=== PATIENT | male | born 1955 | race Caucasian/White ===

== ENCOUNTER 2017-05-12 16:06 | Observation (INO) | payer SELFPAY ==
--- NOTE | 2017-05-12 17:13 | C.PDOC ---
History Of Present Illness <Rachael Peralta - Last Filed: 05/12/17 17:21> <Ti Motne Cameron - Last Filed: 05/13/17 17:35> 61 Y/O MALE BROUGHT TO ED BY SON WHO REPORTS PT HAS BEEN FEELING BLOATED AND GASSY FOR 3-4 DAYS. 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 NOTES PAST HISTORY OF SMALL INTESTINE CARCINOMA. DENIES FEVER, VOMITING, WEIGHT LOSS, BLOODY STOOL, OR OTHER ASSOCIATED SX. (Rachael Peralta) History Per: Patient History/Exam Limitations: no limitations Onset/Duration Of Symptoms: Days Current Symptoms Are (Timing): Still Present Location Of Pain/Discomfort: Diffuse Radiation Of Pain To:: None Quality Of Discomfort: "Pain", Gas Associated Symptoms: Constipation. denies: Fever, Chills, Nausea, Vomiting, Diarrhea, Urinary Symptoms Last Bowel Movement: Today Recent travel outside of the [place]: No <Rachael Peralta - Last Filed: 05/12/17 17:21> <MonteTi Barnes - Last Filed: 05/13/17 17:35> Time Seen by Provider: 05/12/17 16:51 Chief Complaint (Nursing): GI Problem Past Medical History Reviewed: Historical Data, Nursing Documentation, Vital Signs - Medical History PMH: Gastritis Family History: States: Unknown Family Hx - Social History Hx Alcohol Use: No Hx Substance Use: No <Rachael Peralta - Last Filed: 05/12/17 17:21> Review Of Systems Except As Marked, All Systems Reviewed And Found Negative. Constitutional: Negative for: Fever, Chills Cardiovascular: Negative for: Chest Pain Respiratory: Negative for: Cough, Shortness of Breath, Wheezing Gastrointestinal: Positive for: Abdominal Pain, Constipation. Negative for: Nausea, Vomiting, Diarrhea, Hematochezia, Rectal Pain Skin: Negative for: Rash Neurological: Negative for: Headache, Dizziness <Rachael Peralta - Last Filed: 05/12/17 17:21> Physical Exam - Physical Exam Appears: Non-toxic, No Acute Distress Skin: Warm, Dry Head: Atraumatic, Normacephalic Oral Mucosa: Moist Chest: Symmetrical, No Tenderness Cardiovascular: Rhythm Regular, No Murmur Respiratory: Normal Breath Sounds, No Rales, No Rhonchi, No Wheezing Gastrointestinal/Abdominal: Soft, No Tenderness, No Distention, No Guarding, No Rebound Rectal: Other (NO HEMORRHOIDS, NO STOOL IN VAULT ) Back: Normal Inspection, No CVA Tenderness Extremity: Normal ROM, Capillary Refill (< 2 sec.) Neurological/Psych: Oriented x3, Normal Speech, Normal Cognition <Rachael Peralta - Last Filed: 05/12/17 17:21> ED Course And Treatment O2 Sat by Pulse Oximetry: 98 (RA) Pulse Ox Interpretation: Normal <Rachael Peralta - Last Filed: 05/12/17 17:21> - Laboratory Results Result Diagrams: 05/12/17 17:28 05/12/17 17:28 Progress Note: On reevaluation, patient is asymptomatic, abdomen is soft and nontender. Patient notes having some constipation but is stable enough to be discharged home. <Ti Monte - Last Filed: 05/13/17 17:35> Progress - Data Reviewed Data Reviewed: Lab, Diagnostic imaging <Rachael Peralta - Last Filed: 05/12/17 17:21> <Ti Monte - Last Filed: 05/13/17 17:35> - Re-Evaluation Re-evaluation Note: 05/12/17 17:24 CT Abdomen/Pelvis, Labs, IVFs ordered. (Rachael Peralta) ED OBSERVATION Date of observation admission: 05/12/17 Time of observation admission: 16:15 <Rachael Peralta - Last Filed: 05/12/17 17:21> <Ti Monte - Last Filed: 05/13/17 17:35> - Observation admission statement Patient is being placed in observation because:: abd pain, constipation (Rachael Peralta) - Goals of Observation Goals of observation are:: RO OBSTRUCT (Rachael Peralta) Disposition <Rachael Peralta - Last Filed: 05/12/17 17:21> Counseled Patient/Family Regarding: Diagnosis - Disposition Disposition Time: 20:36 - POA Present On Arrival: None <Ti Monte - Last Filed: 05/13/17 17:35> - Disposition Disposition: HOME/ ROUTINE Condition: STABLE - Clinical Impression Clinical Impression: Constipation by delayed colonic transit - Scribe Statement The provider has reviewed the documentation as recorded by the Scribe <FabianRachael - Last Filed: 05/12/17 17:21> <Ti Monte - Last Filed: 08/15/17 17:35> - Scribe Statement SM All medical record entries made by the Scribe were at my direction and personally dictated by me. I have reviewed the chart and agree that the record accurately reflects my personal performance of the history, physical exam, medical decision making, and the department course for this patient. I have also personally directed, reviewed, and agree with the discharge instructions and disposition. (Rachael Peralta)
[2017-05-12] MEDS ORDERED: Iohexol 240 (50 ml) PO STA (17:14)
[2017-05-12] MEDS ORDERED: Sodium Chloride 0.9% 1,000 ML IV ONE (17:14)
[2017-05-12] MEDS ORDERED: Iohexol 240 (50 ml) ONE (17:28)
[2017-05-12] MEDS ORDERED: Sodium Chloride 0.9% 1,000 ML ONE (17:28)
[2017-05-12 17:32] LABS: BASO % 0.2 % (0.0-2.0); EOS # 0.1 K/uL (0.0-0.7); EOS % 2.3 % (0.0-4.0); HEMATOCRIT 42.6 % (35.0-51.0); LYMPH # 1.9 K/uL (1.0-4.3); LYMPH % 37.4 % (20.0-40.0); MEAN CELL VOLUME 87.2 fL (80.0-94.0); MEAN CORPUSCULAR HEMOGLOBIN 28.7 pg (27.0-31.0); MEAN CORPUSCULAR HGB CONC 32.9 g/dL (33.0-37.0); MEAN PLATELET VOLUME 9.8 fL (7.2-11.7); MONO # 0.6 K/uL (0.0-0.8); MONO % 11.4 % (0.0-10.0); NRBC % 0.1 % (0.0-2.0); RED CELL DISTRIBUTION WIDTH 16.2 % (11.5-14.5)
[2017-05-12 17:38] LABS: URINE BILIRUBIN NEGATIVE (NEGATIVE); URINE BLOOD NEGATIVE (NEGATIVE); URINE COLOR Straw (YELLOW); URINE GLUCOSE (UA) NORMAL (Normal); URINE KETONE NEGATIVE (NEGATIVE); URINE LEUKOCYTE ESTERASE NEG Leu/uL (Negative); URINE PROTEIN NEGATIVE (NEGATIVE); URINE UROBILINOGEN NORMAL mg/dL (0.2-1.0)
[2017-05-12 17:39] LABS: CHLORIDE 99 mmol/L (98-107); SODIUM 138 mmol/L (132-148)
[2017-05-12 17:40] LABS: POTASSIUM 4.2 mmol/L (3.6-5.2)
[2017-05-12 17:42] LABS: ALB/GLOB RATIO 1.1 (1.0-2.1); ALKALINE PHOSPHATASE 44 U/L (38-126); ALT/SGPT 32 U/L (21-72); AST/SGOT 27 U/L (17-59); BLOOD UREA NITROGEN 13 mg/dL (9-20); CARBON DIOXIDE 29 mmol/L (22-30); GFR AFRICAN-AMERICAN > 60; GLUCOSE,RANDOM 112 mg/dL (75-110); TOTAL PROTEIN 7.5 g/dL (6.3-8.3)
[2017-05-12 17:43] LABS: CALCIUM 9.1 mg/dl (8.6-10.4)
[2017-05-12] MEDS ORDERED: Iohexol 350mg/ml 100 ML ONE (18:19)
--- NOTE | 2017-05-12 19:04 | CT ---
PROCEDURE: CT Abdomen and Pelvis with oral and IV contrast. HISTORY: abd pain RO OBSTRUCT COMPARISON: None available. TECHNIQUE: Contiguous axial images of the abdomen and pelvis. Oral and IV contrast was administered. Coronal and Sagittal reformats generated and reviewed. Contrast dose: 100 mL Omnipaque 350 Radiation dose: Total exam DLP = 487.04 mGy-cm. This CT exam was performed using one or more of the following dose reduction techniques: Automated exposure control, adjustment of the mA and/or kV according to patient size, and/or use of iterative reconstruction technique. FINDINGS: LOWER THORAX: Atelectasis, left lower lobe. No visible pleural effusion or pneumothorax. Partially imaged large pericardial effusion. LIVER: Hypoattenuation of the liver compatible with hepatic steatosis. GALLBLADDER AND BILE DUCTS: Unremarkable. PANCREAS: Unremarkable. SPLEEN: Unremarkable. ADRENALS: Unremarkable. KIDNEYS AND URETERS: The kidneys enhance symmetrically. No hydronephrosis or obstructing renal calculus. BLADDER: Under distended and thick-walled urinary bladder. REPRODUCTIVE: The prostate gland measures approximately 4.1 x 4.9 cm. Partially imaged large bilateral hydroceles. APPENDIX: The appendix appears within normal limits of caliber. No secondary signs of acute appendicitis. BOWEL: The stomach is nondistended. The bowel loops appear within normal limits of caliber without evidence of intestinal obstruction. PERITONEUM: No significant free fluid. No definite free air. LYMPH NODES: Prominent but sub cm mesenteric and retroperitoneal lymph nodes, nonspecific. VASCULATURE: No aortic aneurysm. BONES: Degenerative changes. OTHER FINDINGS: Two-view fat containing ventral hernias. IMPRESSION: Partially imaged large pericardial effusion. Thick-walled under distended urinary bladder. Recommend correlation with urinalysis. Thick-walled urinary bladder; recommend correlation with urinalysis. Hepatic steatosis. Partially imaged large bilateral hydroceles. Suggest testicular ultrasound for further evaluation if indicated. Additional findings as above.
[2017-05-12 19:05] VITALS: TEMP 98.9
[2017-05-12 20:46] VITALS: BP 131/79; PULSE 103; RESP 18; O2SAT 95
== END 2017-05-12 20:37 | disposition home or self-care (01) ==
LOC: C.ER 16:06 → C.9OBSV 16:15
PROVIDERS: ADMIT Emergency Medicine; ATTEND Emergency Medicine
DX: K59.01 Slow transit constipation (principal); Z85.068 Personal history of other malignant neoplasm of small intestine
CPT/HCPCS: 74177; 80053; 81001; 83690; 85025; G0378; J7040; Q9966; Q9967